=== PATIENT | female | born 1970 | race Caucasian/White ===

== ENCOUNTER 2017-02-13 09:37 | Emergency (ER) | payer BC | END 2017-02-13 12:00 | disposition home or self-care (01) | LOC: ER 09:37 | DX: S40.011A Contusion of right shoulder, initial encounter (principal); R55 Syncope and collapse; E11.9 Type 2 diabetes mellitus without complications; K21.9 Gastro-esophageal reflux disease without esophagitis; Z91.040 Latex allergy status; W18.11XA Fall from or off toilet without subsequent striking against object, initial encounter | CPT/HCPCS: 36415 ==

== ENCOUNTER 2017-03-23 23:01 | Emergency (ER) | payer BC | END 2017-03-24 00:26 | disposition home or self-care (01) | LOC: ER 23:01 | DX: S00.03XA Contusion of scalp, initial encounter (principal); S20.211A Contusion of right front wall of thorax, initial encounter; S30.0XXA Contusion of lower back and pelvis, initial encounter; W01.10XA Fall on same level from slipping, tripping and stumbling with subsequent striking against unspecified object, initial encounter; Y92.009 Unspecified place in unspecified non-institutional (private) residence as the place of occurrence of the external cause; Z91.041 Radiographic dye allergy status | CPT/HCPCS: 73502-RT ==